=== PATIENT | female | born 1995 | race Caucasian/White ===

== ENCOUNTER 2020-06-23 08:30 | Emergency (ER) | payer MEDICAID ==
[~2020-06-23] VITALS: Ht 167.6 cm; Wt 136.8 kg
[2020-06-23] MEDS ORDERED: NAPR-56 PO (10:50)
[2020-06-23] MEDS ORDERED: ketorolac trometh inj. 60 MG/2 ML VIAL IM ONE (10:50)
[2020-06-23 11:52] VITALS: BP 141/74
== END 2020-06-23 11:55 | disposition home or self-care (01) ==
LOC: ER 08:31
DX: M99.08 Segmental and somatic dysfunction of rib cage (principal); Z91.040 Latex allergy status; Z79.899 Other long term (current) drug therapy
CPT/HCPCS: 96372; 99283; J1885

== ENCOUNTER 2020-06-26 15:23 | Emergency (ER) | payer MEDICAID, OTHER ==
[~2020-06-26] VITALS: Ht 167.6 cm; Wt 138.6 kg
[~2020-06-26 15:23] MED LIST: NAPR-56 PO
[2020-06-26] MEDS: cyclobenzaprine 10mg tablet PO ONE ×2 (16:41→16:43)
[2020-06-26] MEDS: ketorolac tromethamine 15mg/ml inj. IM ONE ×2 (16:41→16:44)
[2020-06-26] MEDS ORDERED: CYCL-1 PO (16:57)
[2020-06-26] MEDS ORDERED: ACET-1025 PO (16:57)
[2020-06-26 17:28] VITALS: BP 132/85
== END 2020-06-26 17:37 | disposition home or self-care (01) ==
LOC: ER 15:24
DX: M54.6 Pain in thoracic spine (principal); R07.81 Pleurodynia; M79.601 Pain in right arm; Z91.040 Latex allergy status; Z79.899 Other long term (current) drug therapy
CPT/HCPCS: 71045; 96372; 99283; J1885